=== PATIENT | male | born 1985 | race Caucasian/White ===

== ENCOUNTER 2020-07-06 11:45 | Emergency (ER) | payer OTHER ==
[~2020-07-06] VITALS: Ht 177.8 cm; Wt 81.2 kg
[2020-07-06 11:48] VITALS: BP 113/67
[2020-07-06] MEDS ORDERED: METHOCARBAMOL 750 MG TABLET ONE (12:59)
[2020-07-06] MEDS ORDERED: KETOROLAC 30 MG/1 ML ONE (12:59)
[2020-07-06] MEDS ORDERED: METHOCARBAMOL 750 MG TABLET PO ONE (13:00)
[2020-07-06] MEDS ORDERED: KETOROLAC 30 MG/1 ML IM ONE (13:00)
--- NOTE | 2020-07-06 13:06 | NUR ---
PT MEDICATED ORDERED. PT TO HAVE X-RAYS. PT DOES NOT RECALL NAME OF HOSPITAL IN [place] THAT HE WAS DIAGNOSED WITH CERVICAL FRACTURES. PT ABLE TO MOVE ALL EXTREMITIES AND DENIES ANY NUMBNESS OR TINGLING.
--- NOTE | 2020-07-06 13:53 | NUR ---
PT IN CT.
--- NOTE | 2020-07-06 15:18 | NUR ---
REPORT TO SAMSON Eaton RN.
== END 2020-07-06 15:32 | disposition home or self-care (01) ==
LOC: ED 13:14
DX: S22.050A Wedge compression fracture of T5-T6 vertebra, initial encounter for closed fracture (principal); S22.069A Unspecified fracture of T7-T8 vertebra, initial encounter for closed fracture; I10 Essential (primary) hypertension; I25.2 Old myocardial infarction; X58.XXXA Exposure to other specified factors, initial encounter; Y93.89 Activity, other specified; Y92.89 Other specified places as the place of occurrence of the external cause; Y99.8 Other external cause status
CPT/HCPCS: 72125; 72128; 72131; 96372; 99285; J1885